=== PATIENT | female | born 1985 | race Caucasian/White ===

== ENCOUNTER 2024-10-01 17:49 | Inpatient (IN) | payer MEDICAID ==
[2024-10-01 18:27] LABS: BASOPHILS ABSOLUTE AUTO 0.0 K/mm3 (0.0-0.2); BASOPHILS PERCENT AUTO 0.0 % (0.0-1.0); EOSINOPHILS ABSOLUTE AUTO 0.0 K/mm3 (0.0-0.4); EOSINOPHILS PERCENT AUTO 0.0 % (0.0-6.0); IMMATURE GRAN ABSOLUTE AUTO 0.01 K/mm3 (0.00-0.05); IMMATURE GRAN PERCENT AUTO 0.2 % (0.0-0.4); LYMPHOCYTES ABSOLUTE AUTO 1.1 K/mm3 (1.0-4.8); LYMPHOCYTES PERCENT AUTO 18.8 % (24.0-44.0); MEAN PLATELET VOLUME 10.4 fl (9.4-12.3); MONOCYTES ABSOLUTE AUTO 0.4 K/mm3 (0.0-0.8); MONOCYTES PERCENT AUTO 7.6 % (0.0-8.0); NEUTROPHILS ABSOLUTE AUTO 4.2 K/mm3 (1.8-7.7); NEUTROPHILS PERCENT AUTO 73.4 % (41.0-71.0); NRBC ABSOLUTE 0.00 (0.00-0.02); NRBC PERCENT 0.0 % (0.0-0.2); PLATELET COUNT,PLT 341 K/mm3 (150-400); RED BLOOD CELL COUNT 5.34 M/mm3 (4.10-5.30); WHITE BLOOD CELL COUNT,WBC 5.65 K/mm3 (3.9-11.3)
[2024-10-01 19:02] LABS: A/G RATIO 1.0 (1-2); ALANINE AMINOTRANSFERASE,ALT 29.0 U/L (14-59); ASPARTATE AMNIOTRANSFERASE,AST 26.0 U/L (15-37); BILIRUBIN TOTAL 1.2 mg/dL (0.2-1.0); BLOOD UREA NITROGEN,BUN 20.0 mg/dL (7-18); CARBON DIOXIDE,CO2 18.0 mEq/L (21-32); CHLORIDE,CL 102.0 mEq/L (98-107); CREATININE 0.6 mg/dL (0.55-1.02); EST CRCL DRUG DOSING (CG) 95.93 mL/min; ESTIMATED GFR 118.0 mL/min (>60); GLUCOSE RANDOM 71.0 mg/dL (70-99); POTASSIUM,K 3.7 mEq/L (3.5-5.1); PROTEIN TOTAL,TP 8.2 g/dl (6.4-8.2); SODIUM,NA 139.0 mEq/L (136-145); TSH 0.012 uIU/mL (0.358-3.74)
[2024-10-01 19:09] LABS: ETHANOL BLOOD MEDICAL 0.0 gm% (0.00)
[2024-10-01] MEDS ORDERED: Sodium Chloride 0.9% 10 ML Syringe FLUSH PRN (22:27)
[2024-10-02 00:07] LABS: APPEARANCE,URINE CLOUDY (Clear); GLUCOSE,URINE NEGATIVE (Negative); OCCULT BLOOD,URINE 3+ (Negative)
[2024-10-02 00:12] LABS: BUPRENORPHINE SCREEN,URINE NEGATIVE (CUTOFF=10); METHADONE SCREEN, URINE NEGATIVE (CUTOFF=200); METHAMPHETAMINES SCREEN, URINE NEGATIVE (CUTOFF=500); OXYCODONE SCREEN,URINE NEGATIVE (CUT0FF=100); THC SCREEN,URINE 20 NG/ML NEGATIVE (CUTOFF=50)
[2024-10-02 00:35] LABS: AMPHETAMINES SCREEN, URINE NEGATIVE (CUTOFF=500)
[2024-10-02 00:44] LABS: EPITHELIAL CELLS,URINE 0-5 /hpf (0-5); WBC CLUMPS,URINE FEW /hpf (NOT SEEN)
[2024-10-02 00:46] LABS: YEAST BUDDING,URINE FEW (NOT SEEN)
[2024-10-02 20:14] LABS: IRON,FE 15 ug/dL (50-170)
[2024-10-02] MEDS ORDERED: Naloxone 0.4 MG/ML SDV IVPUSH PRN (21:20)
[2024-10-02] MEDS ORDERED: Ondansetron 4 MG/2 ML SDV IV PRN (21:20)
[2024-10-02 21:51] LABS: A/G RATIO 0.9 (1-2); ALANINE AMINOTRANSFERASE,ALT 23.0 U/L (14-59); ASPARTATE AMNIOTRANSFERASE,AST 18.0 U/L (15-37); BILIRUBIN TOTAL 0.5 mg/dL (0.2-1.0); BLOOD UREA NITROGEN,BUN 21.0 mg/dL (7-18); CARBON DIOXIDE,CO2 25.0 mEq/L (21-32); CHLORIDE,CL 106.0 mEq/L (98-107); CREATININE 0.9 mg/dL (0.55-1.02); EST CRCL DRUG DOSING (CG) 63.95 mL/min; ESTIMATED GFR 84.0 mL/min (>60); GLUCOSE RANDOM 99.0 mg/dL (70-99); PHOSPHORUS 4.2 mg/dL (2.6-4.7); POTASSIUM,K 3.9 mEq/L (3.5-5.1); PROTEIN TOTAL,TP 6.9 g/dl (6.4-8.2); SODIUM,NA 143.0 mEq/L (136-145)
[2024-10-02 21:57] LABS: IRON,FE 14 ug/dL (50-170); PERCENT FE SATURATION 4 % (20-55)
[2024-10-02] MEDS ORDERED: LORazepam 2 MG/ML SDV IVPUSH PRN (22:11)
[2024-10-03 06:01] LABS: BASOPHILS ABSOLUTE AUTO 0.0 K/mm3 (0.0-0.2); BASOPHILS PERCENT AUTO 0.0 % (0.0-1.0); EOSINOPHILS ABSOLUTE AUTO 0.0 K/mm3 (0.0-0.4); EOSINOPHILS PERCENT AUTO 0.0 % (0.0-6.0); IMMATURE GRAN ABSOLUTE AUTO 0.01 K/mm3 (0.00-0.05); IMMATURE GRAN PERCENT AUTO 0.2 % (0.0-0.4); LYMPHOCYTES ABSOLUTE AUTO 1.4 K/mm3 (1.0-4.8); LYMPHOCYTES PERCENT AUTO 23.8 % (24.0-44.0); MEAN PLATELET VOLUME 10.3 fl (9.4-12.3); MONOCYTES ABSOLUTE AUTO 0.6 K/mm3 (0.0-0.8); MONOCYTES PERCENT AUTO 10.9 % (0.0-8.0); NEUTROPHILS ABSOLUTE AUTO 3.8 K/mm3 (1.8-7.7); NEUTROPHILS PERCENT AUTO 65.1 % (41.0-71.0); NRBC ABSOLUTE 0.00 (0.00-0.02); NRBC PERCENT 0.0 % (0.0-0.2); PLATELET COUNT,PLT 268 K/mm3 (150-400); RED BLOOD CELL COUNT 4.40 M/mm3 (4.10-5.30); WHITE BLOOD CELL COUNT,WBC 5.88 K/mm3 (3.9-11.3)
[2024-10-03] MEDS ORDERED: Sennosides/Docusate Sodium 50-8.6 MG Tab PO PRN (15:08)
[2024-10-03] MEDS ORDERED: Ondansetron 4 MG Tab.DIS PO PRN (15:08)
[2024-10-03] MEDS: Sodium Ferric Gluconate Cmplex 125 MG in Sodium Chloride 0.9% 100 ML IV SCH (15:36)
[2024-10-03] MEDS: Magnesium Sulf/Wat 4 GM/50 mL 4 GM in Premix Bag 1 BAG IV ONE (15:50)
[2024-10-03] MEDS ORDERED: Ferrous Sulfate 324 MG Tab.EC PO SCH (22:05)
[2024-10-04] MEDS: Acetaminophen/HYDROcodone 325-5 MG Tab PO PRN (02:48)
[2024-10-04] MEDS: Sodium Ferric Gluconate Cmplex 125 MG in Sodium Chloride 0.9% 100 ML IV SCH (08:41)
[2024-10-04] MEDS: Cholecalciferol (Vitamin D3) 25 MCG Tab PO SCH (11:19)
[2024-10-04] MEDS: Mirabegron 25 MG Tab Extended Release PO SCH (17:11)
[2024-10-04] MEDS: Vitamin B6-pyridOXINE 50 MG Tab PO SCH (21:34)
[2024-10-04] MEDS: Cyanocobalamin (Vitamin B12) 1,000 MCG Tab PO SCH (21:34)
[2024-10-05 05:57] LABS: BASOPHILS ABSOLUTE AUTO 0.0 K/mm3 (0.0-0.2); BASOPHILS PERCENT AUTO 0.0 % (0.0-1.0); EOSINOPHILS ABSOLUTE AUTO 0.0 K/mm3 (0.0-0.4); EOSINOPHILS PERCENT AUTO 0.0 % (0.0-6.0); IMMATURE GRAN ABSOLUTE AUTO 0.01 K/mm3 (0.00-0.05); IMMATURE GRAN PERCENT AUTO 0.2 % (0.0-0.4); LYMPHOCYTES ABSOLUTE AUTO 1.6 K/mm3 (1.0-4.8); LYMPHOCYTES PERCENT AUTO 36.8 % (24.0-44.0); MEAN PLATELET VOLUME 10.5 fl (9.4-12.3); MONOCYTES ABSOLUTE AUTO 0.5 K/mm3 (0.0-0.8); MONOCYTES PERCENT AUTO 10.1 % (0.0-8.0); NEUTROPHILS ABSOLUTE AUTO 2.4 K/mm3 (1.8-7.7); NEUTROPHILS PERCENT AUTO 52.9 % (41.0-71.0); NRBC ABSOLUTE 0.00 (0.00-0.02); NRBC PERCENT 0.0 % (0.0-0.2); PLATELET COUNT,PLT 268 K/mm3 (150-400); RED BLOOD CELL COUNT 4.27 M/mm3 (4.10-5.30); WHITE BLOOD CELL COUNT,WBC 4.46 K/mm3 (3.9-11.3)
[2024-10-05 06:41] LABS: BLOOD UREA NITROGEN,BUN 24.0 mg/dL (7-18); CARBON DIOXIDE,CO2 28.0 mEq/L (21-32); CHLORIDE,CL 104.0 mEq/L (98-107); CREATININE 0.4 mg/dL (0.55-1.02); EST CRCL DRUG DOSING (CG) 133.55 mL/min; ESTIMATED GFR 130.0 mL/min (>60); GLUCOSE RANDOM 88.0 mg/dL (70-99); PHOSPHORUS 4.1 mg/dL (2.6-4.7); POTASSIUM,K 3.9 mEq/L (3.5-5.1); SODIUM,NA 137.0 mEq/L (136-145)
[2024-10-05] MEDS: Magnesium Sulfate 2 GM/50 mL 2 GM in Premix Bag 1 BAG IV ONE (15:47)
[2024-10-06 05:02] LABS: BLOOD UREA NITROGEN,BUN 24.0 mg/dL (7-18); CARBON DIOXIDE,CO2 28.0 mEq/L (21-32); CHLORIDE,CL 102.0 mEq/L (98-107); CREATININE 0.5 mg/dL (0.55-1.02); EST CRCL DRUG DOSING (CG) 107.82 mL/min; ESTIMATED GFR 123.0 mL/min (>60); GLUCOSE RANDOM 86.0 mg/dL (70-99); POTASSIUM,K 4.0 mEq/L (3.5-5.1); SODIUM,NA 138.0 mEq/L (136-145)
[2024-10-07] MEDS: Ferrous Sulfate 324 MG Tab.EC PO SCH (06:26)
== END 2024-10-07 14:34 | DRG 885 ==
LOC: JD.ED 17:49 → JD.MS 10-02 21:20
PROVIDERS: ADMIT Family Medicine; ATTEND Family Medicine
DX: F32.2 Major depressive disorder, single episode, severe without psychotic features (principal); R45.851 Suicidal ideations; N30.01 Acute cystitis with hematuria; G11.4 Hereditary spastic paraplegia; E87.20 Acidosis, unspecified; D50.9 Iron deficiency anemia, unspecified; B85.0 Pediculosis due to Pediculus humanus capitis; F43.0 Acute stress reaction; G47.00 Insomnia, unspecified; M62.838 Other muscle spasm; Z60.9 Problem related to social environment, unspecified; N32.89 Other specified disorders of bladder; E05.90 Thyrotoxicosis, unspecified without thyrotoxic crisis or storm; T76.A1XA Adult financial abuse, suspected, initial encounter; E86.0 Dehydration; Z99.3 Dependence on wheelchair; F43.20 Adjustment disorder, unspecified; Z88.0 Allergy status to penicillin
CPT/HCPCS: 36415 ×2; 80053 ×2; 80143; 80179; 80306; 80307; 81001; 81025; 82607; 83540 ×2; 83735; 84100; 84439; 84443; 84466; 84481; 85025; 87086; 87088 ×2; 87186 ×2; 93005; 99285; J7030; 80048; 94760; 97161-GP; 97166-GO; 97530-GP; 97535-GO; A9270-GY; J0696; J1650; J2916; J3475; Q3014